=== PATIENT | female | born 2000 | race Caucasian/White ===

== ENCOUNTER 2019-07-20 20:14 | Emergency (ER) | payer OTHER ==
[~2019-07-20] VITALS: Ht 152.4 cm; Wt 79.4 kg
[2019-07-20 20:32] VITALS: BP_SYST 142
--- NOTE | 2019-07-20 20:38 | NUR ---
Patient triaged and placed in waiting room. VSS and patient appears in no acute distress at this time. Accompanied by boyfriend, awaiting available bed, and MD notified of need for MSE.
--- NOTE | 2019-07-20 22:31 | NUR ---
Pt ambulatory to bed 7 for evaluation
--- NOTE | 2019-07-20 22:35 | NUR ---
Dr Miller at bedside examining patient
--- NOTE | 2019-07-20 22:35 | NUR ---
Pt brought by self ,A&Ox4, pt presents to ER with bodyaches , afebrile, VSS, respirations even and unlabored.
[2019-07-20 22:59] VITALS: BP_SYST 138
--- NOTE | 2019-07-20 22:59 | NUR ---
Patient given written and verbal discharge instructions and verbalizes understanding. ER MD discussed with patient the results and treatment provided. Patient in stable condition. ID arm band removed. No Rx given. Patient educated on pain management and to follow up with PMD. Pain Scale 2/10 tolerable for pt. Opportunity for questions provided and answered. Medication side effect fact sheet provided.
== END 2019-07-20 22:59 | disposition home or self-care (01) ==
LOC: SED 20:14
DX: J11.1 Influenza due to unidentified influenza virus with other respiratory manifestations (principal)
CPT/HCPCS: 36415; 81002; 81025; 86710; 99283

== ENCOUNTER 2021-02-15 19:58 | Emergency (ER) | payer MEDICAID, OTHER ==
[~2021-02-15] VITALS: Ht 157.5 cm; Wt 83.9 kg
[2021-02-15 20:08] VITALS: BP_SYST 152
[2021-02-15] MEDS ORDERED: LISI20TA30 PO (20:22)
[2021-02-15 20:28] VITALS: BP_SYST 152
== END 2021-02-15 20:28 | disposition home or self-care (01) ==
LOC: SED 19:58
DX: R51.9 Headache, unspecified (principal); I10 Essential (primary) hypertension; M67.462 Ganglion, left knee
CPT/HCPCS: 99283